=== PATIENT | male | born 1995 | race Caucasian/White ===

== ENCOUNTER 2017-04-28 12:32 | Emergency (ER) | payer OTHER ==
[~2017-04-28] VITALS: Ht 182.9 cm; Wt 62.7 kg
[2017-04-28 12:33] VITALS: BP 123/70
[2017-04-28] MEDS ORDERED: ADACEL/BOOSTRIX VACCINE (DIPHTH/PERTUSS/ACELL/TETANUS)0.5ML SYR (90715) IM ONE (13:00)
[2017-04-28] MEDS ORDERED: KEFL500C17 PO (13:32)
--- NOTE | 2017-04-28 13:34 | REP ---
RIGHT FIFTH FINGER SERIES: 04/28/2017. Clinical History: laceration. Findings: Four views were provided. There is no radiopaque foreign body. I see no fracture, avulsion, subluxation or dislocation of the digit. No subcutaneous air. Impression: 1. Negative right fifth digit for fracture, avulsion, foreign body or other acute finding. Signed by Paco Rapp MD 04/28/2017 08:38 P
== END 2017-04-28 14:01 | disposition home or self-care (01) ==
LOC: M ED 12:32
DX: S61.216A Laceration without foreign body of right little finger without damage to nail, initial encounter (principal); W26.0XXA Contact with knife, initial encounter; Y92.018 Other place in single-family (private) house as the place of occurrence of the external cause; Y93.89 Activity, other specified; Y99.8 Other external cause status